=== PATIENT | female | born 1960 | race Caucasian/White ===

== ENCOUNTER 2020-02-29 23:38 | Emergency (ER) | payer BC ==
[2020-03-01] MEDS ORDERED: Alum Hydrox/Mag Hydrox/Simeth 30 ML, Lidocaine 2% 15 ML PO STA ×2 (00:31)
[2020-03-01] MEDS ORDERED: LORazepam 2 MG/ML SDV IVPUSH STA (00:36)
--- NOTE | 2020-03-01 00:37 | EDM.PDOC ---
ED HPI GENERAL MEDICAL PROBLEM - General Chief Complaint: Cardiovascular Problem Stated Complaint: HEART BEATING FAST/CHEST PAIN Time Seen by Provider: 02/29/20 23:49 Source of Information: Reports: Patient History Limitations: Reports: No Limitations - History of Present Illness INITIAL COMMENTS - FREE TEXT/NARRATIVE: Mrs. Hodges is a very pleasant 59-year-old woman who now presents the ED with retrosternal chest heaviness. She states that she has been experiencing this discomfort on and off since September, but that it came and went more frequently today, and was worse tonight, after she laid down. When present, it typically comes on gradually and last for a few hours, and ordinarily occurs only once every other day, although she has had occasion when it occurred twice in one day. She has not identified any modifiers. When present, she has associated dyspnea and considerable anxiety, although she denies associated diaphoresis or nausea. The patient also reports that she has felt rapid palpitations tonight, including when her vitals were taken at triage, and when an ECG was obtained shortly after triage. The patient has not had a prior medical evaluation for these symptoms. She did not take any [id number] or home remedies tonight, prior to coming to the ED. Here in the ED, the patient's initial BP is found to be elevated at 185/110, otherwise, she is hemodynamically stable, afebrile, saturating 100% on room air. The patient states that she has a history of GERD, for which she is prescribed a PPI, but that she takes only on occasion, and none recently. She states that she developed a sore throat this past Saturday or Saturday, 02/26/2020 or 02/27/2020, which has now nearly resolved. She reports a 9 pound weight gain over the past 3 months, that she attributes to an antihypertensive medication that she was started on around that time. She states that she has had a chronic nonproductive cough for years, of undetermined etiology. She also reports years of occasional watery diarrhea. Otherwise, the patient denies having a recent fever, chills, ear pain, nasal or sinus congestion, nausea, vomiting, constipation, abdominal pain, urinary symptoms, recent bloody bowel movements or black bowel movements, recent joint aches, headaches, or rashes. The patient's PCP is Dr. Christine Tang. Her women's health provider is Myranda Oquendo NP. Mid-Sternal Chest Pain Score (Numeric/FACES): 7 - Related Data Allergies Allergy/AdvReac Type Severity Reaction Status Date / Time No Known Allergies Allergy Verified 02/29/20 23:42 Home Meds: Home Meds Metoprolol Succinate 25 mg PO DAILY 02/29/20 [History] lisinopriL [Lisinopril] 40 mg PO DAILY 02/29/20 [History] Past Medical History Cardiovascular History: Reports: Hypertension Gastrointestinal History: Reports: GERD (noncompliant with PPI) Genitourinary History: Reports: Other (See Below) (Congenital solitary kidney) PREVENTION SPECIALIST History: Reports: Ectopic (x 3), Spontaneous (x 4) - Past Surgical History HEENT Surgical History: Reports: Tonsillectomy GI Surgical History: Reports: Cholecystectomy (around 1989) Female Surgical History: Reports: Hysterectomy (partial), Other (See Below) (Tubal x 4) Social & Family History - Tobacco Use Tobacco Use Status *Q: Never Tobacco User - Alcohol Use Alcohol Use History: Yes Alcohol Use Frequency: Socially - Recreational Drug Use Recreational Drug Use: No - Living Situation & Occupation Living situation: Reports: , with Spouse Occupation: Retired ED ROS GENERAL - Review of Systems Review Of Systems: Comprehensive ROS is negative, except as noted in HPI. ED EXAM, GENERAL - Physical Exam Exam: See Below Exam Limited By: No Limitations General Appearance: Alert, WD/WN, Anxious Eye Exam: Bilateral Eye: EOMI, Normal Inspection Ears: Normal External Exam, Hearing Grossly Normal Nose: Normal Inspection Throat/Mouth: Normal Inspection, Normal Lips, Normal Voice, No Airway Compromise Head: Atraumatic, Normocephalic Neck: Normal Inspection, Full Range of Motion Respiratory/Chest: No Respiratory Distress, Lungs Clear, Normal Breath Sounds, No Accessory Muscle Use Cardiovascular: Normal Peripheral Pulses, Regular Rate, Rhythm, No Edema, No Gallop, No JVD, No Murmur, No Rub Peripheral Pulses: 3+: Radial (L), Radial (R) GI/Abdominal: Normal Bowel Sounds, Soft, Non-Tender, No Organomegaly, No Distention, No Abnormal Bruit, No Mass Back Exam: Normal Inspection, Full Range of Motion, NT Extremities: Normal Inspection, Normal Range of Motion, No Pedal Edema, Normal Capillary Refill Neurological: Alert, Oriented, Normal Cognition, No Motor/Sensory Deficits Psychiatric: Anxious Skin Exam: Warm, Dry, Intact, Normal Color, No Rash #1 Interpretation EKG Date: 02/29/20 Time: 23:43 Rhythm: NSR Rate (Beats/Min): 91 [place]: Normal (borderline LAD) P-Wave: Enlarged (LAE) QRS: Other (LVH. Late transition.) ST-T: Depressed ([address] depression in lateral leads + II, but no T-wave inversions to suggest ischemia) QT: Normal Comparison: NA - No Prior EKG Course - Vital Signs Last Recorded V/S: Last Vital Signs Temp 36.4 C 02/29/20 23:43 Pulse 96 02/29/20 23:43 Resp 17 02/29/20 23:43 BP 185/110 H 02/29/20 23:43 Pulse Ox 100 02/29/20 23:43 - Orders/Labs/Meds Orders: Active Orders 24 hr Category Date Time Status Chest 2V [CR] Stat Exams 03/01/20 00:30 Taken CORONAVIRUS COVID-19 PCR [facility] Stat Lab 03/01/20 01:11 Received Labs: Laboratory Tests 02/29/20 02/29/20 02/29/20 Range/Units 23:51 23:51 23:51 WBC 5.16 (3.98-10.04) K/mm3 RBC 4.46 (3.98-5.22) M/mm3 Hgb 13.5 (11.2-15.7) gm/dl Hct 40.0 (34.1-44.9) % MCV 89.7 (79.4-94.8) fl MCH 30.3 (25.6-32.2) pg MCHC 33.8 (32.2-35.5) g/dl RDW Std Deviation 42.0 (36.4-46.3) fL Plt Count 286 (182-369) K/mm3 MPV 9.2 L (9.4-12.3) fl Neutrophils % (Manual) 52 (40-60) % Band Neutrophils % 1 (0-10) % Lymphocytes % (Manual) 21 (20-40) % Atypical Lymphs % 0 % Monocytes % (Manual) 22 H (2-10) % Eosinophils % (Manual) 1 (0.7-5.8) % Basophils % (Manual) 3 H (0.1-1.2) Platelet Estimate Adequate Plt Morphology Comment Normal RBC Morph Comment Normal D-Dimer, Quantitative < 0.19 L (0.19-0.50) mg/L Puncture Site ABG pH (7.35-7.45) ABG pCO2 (35.0-45.0) mmHg ABG pO2 (80.0-100.0) mmHg ABG HCO3 (22.0-26.0) meq/L ABG O2 Saturation (96.0-97.0) % ABG Base Excess (-2-2.0) A-a Gradient mmHg O2 Delivery Device Oxygen Flow Rate FiO2 (21.00-100.00) % Sodium 129 L (136-145) mEq/L Potassium 3.4 L (3.5-5.1) mEq/L Chloride 92 L D (98-107) mEq/L Carbon Dioxide 23 (21-32) mEq/L Anion Gap 17.4 H (5-15) BUN 16 (7-18) mg/dL Creatinine 1.2 H (0.55-1.02) mg/dL Est Cr Clr Drug Dosing 39.92 mL/min Estimated GFR (MDRD) 46 (>60) mL/min BUN/Creatinine Ratio 13.3 L (14-18) Glucose 116 H (74-106) mg/dL Calcium 9.2 (8.5-10.1) mg/dL Magnesium 1.4 L (1.8-2.4) mg/dl Total Bilirubin 0.7 (0.2-1.0) mg/dL AST 27 (15-37) U/L ALT 30 (14-59) U/L Alkaline Phosphatase 78 (46-116) U/L Troponin I < 0.017 (0.00-0.056) ng/mL C-Reactive Protein 1.9 H* (<1.0) mg/dL NT-Pro-B Natriuret Pep (0-125) pg/mL Total Protein 8.0 (6.4-8.2) g/dl Albumin 4.1 (3.4-5.0) g/dl Globulin 3.9 gm/dL Albumin/Globulin Ratio 1.1 (1-2) TSH 3rd Generation 2.191 (0.358-3.74) uIU/mL 02/29/20 03/01/20 Range/Units 23:51 00:56 WBC (3.98-10.04) K/mm3 RBC (3.98-5.22) M/mm3 Hgb (11.2-15.7) gm/dl Hct (34.1-44.9) % MCV (79.4-94.8) fl MCH (25.6-32.2) pg MCHC (32.2-35.5) g/dl RDW Std Deviation (36.4-46.3) fL Plt Count (182-369) K/mm3 MPV (9.4-12.3) fl Neutrophils % (Manual) (40-60) % Band Neutrophils % (0-10) % Lymphocytes % (Manual) (20-40) % Atypical Lymphs % % Monocytes % (Manual) (2-10) % Eosinophils % (Manual) (0.7-5.8) % Basophils % (Manual) (0.1-1.2) Platelet Estimate Plt Morphology Comment RBC Morph Comment D-Dimer, Quantitative (0.19-0.50) mg/L Puncture Site Lt radial ABG pH 7.54 H (7.35-7.45) ABG pCO2 27.6 L (35.0-45.0) mmHg ABG pO2 96.0 (80.0-100.0) mmHg ABG HCO3 23.8 (22.0-26.0) meq/L ABG O2 Saturation 98.4 H (96.0-97.0) % ABG Base Excess 2.5 H (-2-2.0) A-a Gradient 19 mmHg O2 Delivery Device Room air Oxygen Flow Rate 0.0 FiO2 21.00 (21.00-100.00) % Sodium (136-145) mEq/L Potassium (3.5-5.1) mEq/L Chloride (98-107) mEq/L Carbon Dioxide (21-32) mEq/L Anion Gap (5-15) BUN (7-18) mg/dL Creatinine (0.55-1.02) mg/dL Est Cr Clr Drug Dosing mL/min Estimated GFR (MDRD) (>60) mL/min BUN/Creatinine Ratio (14-18) Glucose (74-106) mg/dL Calcium (8.5-10.1) mg/dL Magnesium (1.8-2.4) mg/dl Total Bilirubin (0.2-1.0) mg/dL AST (15-37) U/L ALT (14-59) U/L Alkaline Phosphatase (46-116) U/L Troponin I (0.00-0.056) ng/mL C-Reactive Protein (<1.0) mg/dL NT-Pro-B Natriuret Pep 84 (0-125) pg/mL Total Protein (6.4-8.2) g/dl Albumin (3.4-5.0) g/dl Globulin gm/dL Albumin/Globulin Ratio (1-2) TSH 3rd Generation (0.358-3.74) uIU/mL Meds: Medications Discontinued Medications Generic Name Dose Route Start Last Admin Trade Name Freq PRN Reason Stop Dose Admin Al Hydroxide/Mg Hydroxide 30 0 ml 03/01/20 00:31 03/01/20 00:45 ml/ Lidocaine HCl 15 ml PO 03/01/20 00:32 45 ml ONETIME STA Administration Sodium Chloride 1,000 mls @ 999 mls/hr 03/01/20 01:37 03/01/20 01:50 Normal Saline IV 03/01/20 02:37 999 mls/hr ONETIME ONE Administration Lorazepam 1 mg 03/01/20 00:36 03/01/20 01:05 Ativan IVPUSH 03/01/20 00:37 1 mg ONETIME STA Administration Magnesium Sulfate 2 gm 03/01/20 01:37 03/01/20 01:50 Magnesium Sulfate In Water Premix IV 03/01/20 01:38 2 gm ONETIME STA Administration - Re-Assessments/Exams Free Text/Narrative Re-Assessment/Exam: 03/01/20 00:32 As above, the patient has been experiencing retrosternal chest heaviness on and off since September, but it was more persistent today and worse tonight. When present, she has associated dyspnea and anxiety, although no associated diaphoresis or nausea. She also reports rapid palpitations today, including at triage and when her ECG was obtained, however, she was not tachycardiac at either of those times. Of interest, the patient has a history of GERD that she treats with a PPI only on occasion, and not recently. Here in the ED, the patient appears to be very anxious, and her oxygen saturation is noted to be 100% on room air. An ECG obtained at triage shows a normal sinus rhythm at 91 bpm with no ischemic changes. Her physical exam is unremarkable. I suspect that the patient may be experiencing GERD, with significant anxiety that her symptoms are cardiac related, as a result. I have ordered a work-up that includes blood work, an ABG, a chest x-ray, and a send-out test for the SARS-CoV-2 virus. In the meantime, the patient will be given a GI cocktail and 1 mg of IV Ativan, however, the Ativan is not to be given until after her ABG is obtained. 03/01/20 00:49 2-view chest radiograph is read by Darnell as "No acute findings." 03/01/20 01:38 The patient's CBC is unremarkable. Her CMP is remarkable for a sodium significantly depressed at 129, and anion gap mildly elevated at 17.4, but with a bicarbonate normal at 23, a Cr slightly elevated at 1.2, but with a BUN normal at 16, and a blood glucose mildly elevated at 116, with the remainder of her CMP being unremarkable. Her magnesium level is significantly depressed at 1.4. Her CRP is mildly elevated at 1.7. Her TSH is within normal limits at 2.191. Her troponin is undetectably low. Her BNP is within normal limits at 84. Her D-dimer is undetectably low. Her ABG represents a combined respiratory alkalosis with secondary metabolic alkalosis. Based on the above, I have ordered 1 L of NS and a 2 g Mg-rider. 03/01/20 02:15 Test results discussed with the patient. She reported that she had substantial improvement in her chest discomfort following the GI cocktail, confirming that her pain is due to GERD. She confirmed that she drinks "a lot" of water, and that she also restricts her salt intake, out of concern about her blood pressure . Going forward, I recommended that she start taking an H2 tran, such as famotidine, 1 tablet either once or twice a day, on a regular basis. I recommended that she introduce some salt into her diet, either by drinking a fluid such as Gatorade or Powerade, or increasing the salt in her food. I explained that the patient's ABG confirms that she was hyperventilating, and that the hyperventilation is most likely due to anxiety/panic attack, since her work-up for other known medical etiologies returned negative. I am not recommending that she seek treatment for anxiety at this time, since her anxiety appears to be due to her fear of a cardiac etiology of her chest pain, however, if her symptoms persist despite adequate treatment of her GERD, then I recommended that she follow-up with her PCP to discuss treatment options. The patient is currently receiving the previously ordered IV fluid and Mg-rider. She will be discharged home once they finish infusing. Departure - Departure Time of Disposition: 02:17 Disposition: Home, Self-Care 01 Condition: Good Clinical Impression: GERD (gastroesophageal reflux disease), Hyperventilation syndrome, Hyponatremia, Hypomagnesemia - Discharge Information *PRESCRIPTION DRUG MONITORING PROGRAM REVIEWED*: Not Applicable *COPY OF PRESCRIPTION DRUG MONITORING REPORT IN PATIENT HARMEET: Not Applicable Instructions: Heartburn, Managing Anxiety, Adult Referrals: Christine Tang MD [Primary Care Provider] - Myranda Oquendo NP [Nurse Practitioner] - Forms: ED Department Discharge Additional Instructions: You were seen in the emergency room for recurrent midline chest pain, with associated shortness of breath, rapid palpitations, and feeling anxious. Work-up in the ER included blood work, an arterial blood gas, a chest x-ray, an ECG, and a send out test for the SARS-CoV-2 virus. Your chest pain improved significantly after you were given a GI cocktail, confirming that the chest pain is due to acid reflux (GERD). We recommend that you take an [id number] H2 tran, such as famotidine (Pepcid), 1 tablet, either once or twice a day, every day. Famotidine is available [id number], and the generic is just as good as brand-name Pepcid. Your blood work found your sodium to be significantly depressed at 129 (water to xicity), and your magnesium level to be significantly depressed at 1.4. The remainder of your blood work was unremarkable. You were given IV fluid and IV magnesium in the ER, to help correct these e lectrolyte abnormalities. Both of your electrolyte abnormalities are most likely due to inadequate salt intake. Going forward, we recommend that you either drink fluid only if you are feeling thirsty, and that you either drink a fluid that contains electrolytes, such as Gatorade or Powerade, or increase the amount of salt in your food. Your blood gas confirmed that you were hyperventilating. As discussed, hyperventilation is usually caused by anxiety, however, there are some medical conditions that can cause it, as well. You were tested for these medical conditions, and all of them returned negative. By a process of elimination, then, your hyperventilation appears to be due to anxiety. If you continue to have symptoms of anxiety despite adequate treatment of your GERD, including shortness of breath, rapid palpitations, and feeling anxious, we recommend that you follow-up with your PCP, Dr. Christine Tang, to discuss treatment options for anxiety. If any other problems, please do not hesitate to return to the ER. Sepsis Event Note (ED) - Evaluation Sepsis Screening Result: No Definite Risk - Focused Exam Vital Signs: Vital Signs Temp Pulse Resp BP Pulse Ox 02/29/20 23:43 36.4 C 96 17 185/110 H 100 - My Orders Last 24 Hours: My Active Orders 03/01/20 00:30 Chest 2V [CR] Stat 03/01/20 01:11 CORONAVIRUS COVID-19 PCR PHL Stat - Assessment/Plan Last 24 Hours: My Active Orders 03/01/20 00:30 Chest 2V [CR] Stat 03/01/20 01:11 CORONAVIRUS COVID-19 PCR PHL Stat
[2020-03-01] MEDS ORDERED: Magnesium Sulfate/Water 2 GM/50 ML Premix Bag IV STA (01:37)
[2020-03-01] MEDS ORDERED: Sodium Chloride 0.9% 1,000 ML IV ONE (01:37)
--- NOTE | 2020-03-03 15:11 | CR ---
PROCEDURE INFORMATION: Exam: XR Chest, 2 Views Exam date and time: 03/01/2020 12:38 AM Age: 59 years old Clinical indication: Pain; Patient HX: Retrosternal chest pressure TECHNIQUE: Imaging protocol: XR of the chest Views: 2 views. COMPARISON: No relevant prior studies available. FINDINGS: Lungs: Unremarkable. No consolidation. Pleural space: Unremarkable. No pleural effusion. No pneumothorax. Heart/Mediastinum: Unremarkable. No cardiomegaly. Bones/joints: Unremarkable. IMPRESSION: No acute findings. Thank you for allowing us to participate in the care of your patient. Dictated and Authenticated by: Pranav Isbell MD 03/01/2020 1:47 AM Central Time ([place] & [place]) [facility]
== END 2020-03-01 04:07 | disposition home or self-care (01) ==
LOC: JD.ED 23:38
DX: K21.9 Gastro-esophageal reflux disease without esophagitis (principal); F45.8 Other somatoform disorders; E87.1 Hypo-osmolality and hyponatremia; E83.42 Hypomagnesemia; I10 Essential (primary) hypertension; Z90.710 Acquired absence of both cervix and uterus; Z90.49 Acquired absence of other specified parts of digestive tract; Z79.899 Other long term (current) drug therapy
CPT/HCPCS: 36415; 36600; 71046; 80053; 82803; 83735; 83880; 84443; 84484; 85007; 85027; 85379; 86140; 93005; 96365; 96366; 96375; 99285; A9270; J2060; J3475; J7030; 93010; 99284; U0002

== ENCOUNTER 2024-01-16 03:10 | Emergency (ER) | payer BC ==
[2024-01-16 03:45] LABS: BASOPHILS ABSOLUTE AUTO 0.1 K/mm3 (0.0-0.2); EOSINOPHILS ABSOLUTE AUTO 0.2 K/mm3 (0.0-0.4); EOSINOPHILS PERCENT AUTO 3.9 % (0.0-6.0); HEMATOCRIT 38.9 % (37.0-47.0); HEMOGLOBIN 13.1 gm/dl (12.0-16.0); LYMPHOCYTES ABSOLUTE AUTO 2.2 K/mm3 (1.0-4.8); LYMPHOCYTES PERCENT AUTO 43.3 % (24.0-44.0); MEAN CORPUSCULAR HEMOGLOBIN 30.5 pg (28.0-32.0); MEAN CORPUSCULAR HGB CONC 33.7 g/dl (32.0-36.0); MEAN CORPUSCULAR VOLUME 90.7 fl (83.0-99.0); MEAN PLATELET VOLUME 8.4 fl (9.4-12.3); MONOCYTES ABSOLUTE AUTO 0.5 K/mm3 (0.0-0.8); MONOCYTES PERCENT AUTO 9.2 % (0.0-8.0); NEUTROPHILS ABSOLUTE AUTO 2.2 K/mm3 (1.8-7.7); NEUTROPHILS PERCENT AUTO 42.6 % (41.0-71.0); PLATELET COUNT,PLT 296 K/mm3 (150-400); RED BLOOD CELL COUNT 4.29 M/mm3 (4.10-5.30); WHITE BLOOD CELL COUNT,WBC 5.13 K/mm3 (3.9-11.3)
[2024-01-16 04:01] LABS: A/G RATIO 1.1 (1-2); ALANINE AMINOTRANSFERASE,ALT 22 U/L (14-59); ALBUMIN 3.8 g/dl (3.4-5.0); ALKALINE PHOSPHATASE 78 U/L (46-116); ANION GAP 15.9 (5-15); ASPARTATE AMNIOTRANSFERASE,AST 21 U/L (15-37); BILIRUBIN TOTAL 0.4 mg/dL (0.2-1.0); BLOOD UREA NITROGEN,BUN 8 mg/dL (7-18); CALCIUM 9.3 mg/dL (8.5-10.1); CARBON DIOXIDE,CO2 24 mEq/L (21-32); CHLORIDE,CL 102 mEq/L (98-107); CREATININE 0.8 mg/dL (0.55-1.02); EST CRCL DRUG DOSING (CG) 67.38 mL/min; ESTIMATED GFR 83 mL/min (>60); GLUCOSE RANDOM 85 mg/dL (70-99); POTASSIUM,K 3.9 mEq/L (3.5-5.1); PROTEIN TOTAL,TP 7.4 g/dl (6.4-8.2); SODIUM,NA 138 mEq/L (136-145)
[2024-01-16 04:11] LABS: TROPONIN I HIGH SENSITIVITY < 4 pg/mL (<=51)
[2024-01-16 04:22] LABS: CORONAVIRUS COVID-19 NAA NEGATIVE (NEGATIVE); INFLUENZA A NAA NEGATIVE (NEGATIVE); RESPIRATORY SYNCYTIAL VIR NAA NEGATIVE (NEGATIVE)
[2024-01-16] MEDS: predniSONE 10 MG Tab PO SCH (04:43)
[2024-01-16] MEDS: Azithromycin 250 MG Tab PO SCH (04:43)
== END 2024-01-16 04:53 | disposition home or self-care (01) ==
LOC: JD.ED 03:10
DX: R07.2 Precordial pain (principal); J40 Bronchitis, not specified as acute or chronic; I10 Essential (primary) hypertension; Z90.49 Acquired absence of other specified parts of digestive tract; Z90.710 Acquired absence of both cervix and uterus; Z79.899 Other long term (current) drug therapy; Z88.8 Allergy status to other drugs, medicaments and biological substances
CPT/HCPCS: 0241U; 36415; 71045; 71045-26; 80053; 84484; 85025; 93005; 93010; 99283; 99285; A9270-GY; J7512